=== PATIENT | female | born 1935 | race Caucasian/White ===

== ENCOUNTER 2017-11-01 14:45 | Inpatient (IN) | payer MEDICARE, BC ==
--- NOTE | 2017-11-01 15:09 | EDM.PDOC ---
ED HPI GENERAL MEDICAL PROBLEM - General Chief Complaint: Neuro Symptoms/Deficits Stated Complaint: Altered mental status Time Seen by Provider: 11/01/17 14:59 Source of Information: Reports: EMS, EMS Notes Reviewed, Retirement Records - History of Present Illness INITIAL COMMENTS - FREE TEXT/NARRATIVE: Patient is an 82-year-old female who presents to the emergency department this afternoon via EMS from [facility] for complaint of altered mental status. Per nursing staff, at 1 p.m. today patient was unresponsive and staring into space. Patient had been fine earlier in the day, able to consume meal, and converse with staff. Patient does have a history of multiple strokes recently and currently has left-sided paralysis of upper and lower extremities. Vital signs were stable per EMS and patient appears to be in no apparent distress upon presentation to the emergency department. Patient unable to communicate at this time and is only moving right upper extremity. Onset: Today Onset Date: 11/01/17 Onset Time: 13:00 Improves with: Reports: None Worsens with: Reports: None Associated Symptoms: Reports: No Other Symptoms - Related Data Allergies Allergy/AdvReac Type Severity Reaction Status Date / Time No Known Drug Allergies Allergy Other Verified 11/01/17 15:32 ED ROS GENERAL - Review of Systems Review Of Systems: ROS reveals no pertinent complaints other than HPI. Constitutional: Reports: Fatigue HEENT: Reports: No Symptoms Respiratory: Reports: No Symptoms Cardiovascular: Reports: No Symptoms Endocrine: Reports: No Symptoms GI/Abdominal: Reports: No Symptoms : Reports: No Symptoms Musculoskeletal: Reports: No Symptoms Skin: Reports: No Symptoms Neurological: Reports: Pre-Existing Deficit, Other (Unable to communicate) Psychiatric: Reports: No Symptoms Hematologic/Lymphatic: Reports: No Symptoms Immunologic: Reports: No Symptoms - Physical Exam Exam: See Below Exam Limited By: No Limitations General Appearance: WD/WN, No Apparent Distress, Other (No eye contact, able to move right upper extremity.) Eye Exam: Bilateral Eye: Abnormal Pupil (Sluggish to reaction) Nose: Normal Inspection, Normal Mucosa, No Blood Throat/Mouth: Normal Inspection, Normal Oropharynx, No Airway Compromise Head Exam: Atraumatic, Normocephalic Respiratory/Chest: No Respiratory Distress, Lungs Clear, Normal Breath Sounds Cardiovascular: Regular Rate, Rhythm GI/Abdominal: Normal Bowel Sounds, Soft, Non-Tender Neuro Exam (Abbreviated): Unresponsive, Other (NIH stroke scale 2/2/2/2/1/1/3/2/ 3/3/UA/2/3/2/UA) Extremities: Normal Inspection, No Pedal Edema Skin Exam: Warm, Dry, Intact, Normal Color, No Rash EKG INTERPRETATION EKG Date: 11/01/17 Time: 15:25 Rhythm: Other (Sinus bradycardia) [place]: Normal P-Wave: Present QRS: Normal ST-T: Other (Nonspecific) QT: Normal Comparison: NA - No Prior EKG Course - Orders/Labs/Meds Orders: Active Orders 24 hr Category Date Time Status EKG Documentation Completion [RC] ASDIRECTED Care 11/01/17 15:01 Ordered CBC WITH AUTO DIFF [HEME] Stat Lab 11/01/17 15:00 Ordered COMPREHENSIVE METABOLIC PN,CMP [CHEM] Stat Lab 11/01/17 15:00 Ordered INR,PT,PROTHROMBIN TIME [COAG] Stat Lab 11/01/17 15:00 Ordered PTT,PARTIAL THROMBOPLSTIN TIME [COAG] Stat Lab 11/01/17 15:00 Ordered UA W/MICROSCOPIC [URIN] Stat Lab 11/01/17 15:00 Ordered EKG 12 Lead [EK] Routine Ther 11/01/17 15:00 Ordered - Radiology Interpretation Free Text/Narrative:: Chest x-ray no acute cardiopulmonary process CT head without contrast shows no acute intracranial process - Re-Assessments/Exams Free Text/Narrative Re-Assessment/Exam: 11/01/17 17:12 Patient afebrile, vital signs stable, in no apparent distress. Discussed case with Dr. Sadler, and he will admit patient and follow. Departure - Departure Time of Disposition: 17:13 Disposition: Admitted As Inpatient 64 Condition: Poor Clinical Impression: Cerebrovascular accident (CVA) Qualifiers: CVA mechanism: unspecified Qualified Code(s): I63.9 - Cerebral infarction, unspecified - Discharge Information Forms: ED Department Discharge - My Orders Last 24 Hours: My Active Orders 11/01/17 15:00 CBC WITH AUTO DIFF [HEME] Stat COMPREHENSIVE METABOLIC PN,CMP [CHEM] Stat INR,PT,PROTHROMBIN TIME [COAG] Stat PTT,PARTIAL THROMBOPLSTIN TIME [COAG] Stat UA W/MICROSCOPIC [URIN] Stat EKG 12 Lead [EK] Routine 11/01/17 15:01 EKG Documentation Completion [RC] ASDIRECTED - Assessment/Plan Last 24 Hours: My Active Orders 11/01/17 15:00 CBC WITH AUTO DIFF [HEME] Stat COMPREHENSIVE METABOLIC PN,CMP [CHEM] Stat INR,PT,PROTHROMBIN TIME [COAG] Stat PTT,PARTIAL THROMBOPLSTIN TIME [COAG] Stat UA W/MICROSCOPIC [URIN] Stat EKG 12 Lead [EK] Routine 11/01/17 15:01 EKG Documentation Completion [RC] ASDIRECTED Assessment:: Altered mental status Plan: Admission to Dr. Sadler
[2017-11-01 15:34] LABS: CHLORIDE,CL 107 mmol/L (98-115); SODIUM,NA 138 mmol/L (136-145)
[2017-11-01] MEDS ORDERED: Dextrose 5%-0.45% NaCl 1,000 ML IV SCH (18:30)
[2017-11-01] MEDS ORDERED: Enoxaparin 60 MG/0.6 ML Syringe SUBCUT ONE (18:32)
[2017-11-02] MEDS ORDERED: LORazepam 2 MG/ML SDV IVPUSH ONE (05:33)
[2017-11-02 07:53] LABS: CHLORIDE,CL 107 mmol/L (98-115); SODIUM,NA 142 mmol/L (136-145)
--- NOTE | 2017-11-02 10:35 | PCM.HP ---
H&P History of Present Illness - General Date of Service: 11/02/17 Admit Problem/Dx: Admission Diagnosis/Problem Admission Diagnosis/Problem Altered mental status Source of Information: Family, Old Records, RN, Significant Other (Daughter) History Limitations: Reports: Altered Mental Status - Related Data Allergies/Adverse Reactions: Allergies Allergy/AdvReac Type Severity Reaction Status Date / Time No Known Drug Allergies Allergy Other Verified 11/01/17 15:32 Home Medications: Home Meds Atenolol 25 mg PO 1800 11/01/17 [History] Atenolol 50 mg PO DAILY 11/01/17 [History] Latanoprost 1 drop EYEBOTH BEDTIME 11/01/17 [History] Magnesium Hydroxide [Milk of Magnesia] 30 ml PO DAILY PRN 11/01/17 [History] Trolamine Salicylate/Aloe Vera [Aspercreme 10% Cream] 1 applic TOP TID 11/01/17 [History] Acetaminophen [Non-Aspirin Extra Strength] 1,000 mg PEGTUBE TID PRN #1350 ml 01/15 [Rx] Allopurinol [Zyloprim] 100 mg PEGTUBE DAILY #30 tab 11/05/17 [Rx] Aspirin 81 mg PEGTUBE DAILY #30 tab.chew 11/05/17 [Rx] Bisacodyl 10 mg RC DAILY PRN #20 supp.rect 11/05/17 [Rx] Carboxymethylcellulose/Lytes [Song-Stir Oral [place]] 1 ml MUCMEM ASDIRECTED PRN # 1 bottle 11/05/17 [Rx] Cimetidine HCl [Cimetidine] 300 mg PEGTUBE BEDTIME #150 ml 11/05/17 [Rx] Levothyroxine Sodium [Synthroid] 75 mcg PEGTUBE DAILY #30 tab 11/05/17 [Rx] Past Medical History Cardiovascular History: Reports: Afib, Arrhythmia, Hypertension Genitourinary History: Reports: Urinary Incontinence [employer] History: Reports: Neurological History: Reports: CVA Endocrine/Metabolic History: Reports: Hypoparathyroidism Social & Family History - Family History Family Medical History: Unobtainable HEENT: Reports: None Cardiac: Reports: None Respiratory: Reports: None GI: Reports: None : Reports: None OBGYN: Reports: None Musculoskeletal: Reports: None Neurological: Reports: None Psychiatric: Reports: None Endocrine/Metabolic: Reports: None Hematologic: Reports: None Immunologic: Reports: None Dermatologic: Reports: None Oncologic: Reports: None - Tobacco Use Smoking Status *Q: Unknown Ever Smoked Second Hand Smoke Exposure: No H&P Review of Systems - Review of Systems: Review Of Systems: Unable To Obtain (Patient unresponsive) Exam - Exam Exam: See Below - Vital Signs Vital Signs: Last Vital Signs Temp 99.4 F 11/02/17 05:58 Pulse 86 11/02/17 05:58 Resp 20 11/02/17 05:58 BP 151/90 H 11/02/17 05:58 Pulse Ox 91 L 11/02/17 05:58 Weight: 119 lb - Exam Quality Assessment: No: Supplemental Oxygen General: Obtunded. No: Alert, Oriented HEENT: No: Mucosa Moist & [place] Neck: Supple Lungs: Clear to Auscultation, Normal Respiratory Effort. No: Rales Cardiovascular: Regular Rate, Regular Rhythm, Normal S1, Normal S2 GI/Abdominal Exam: Soft, Distended Extremities: No Pedal Edema, Normal Capillary Refill Peripheral Pulses: 2+: Radial (L), Radial (R) Skin: Warm, Dry, Intact Neurological: Sensation Intact, Babinski, Hyporeflexia. No: Normal Gait, Normal Speech Neuro Extensive - Mental Status: Withdraws to Pain. No: Alert, Oriented x3, Normal Cognition, Opens Eyes to Commands Neuro Extensive - Motor, Sensory, Reflexes: Hemeplagia (R), Hemeplagia (L), Abnormal Motor, Motor/Sensory Deficits DTR: 0: Patella (L), Patella (R) Psychiatric: No: Alert - Patient Data Lab Results Last 24 hrs: Laboratory Results - last 24 hr 11/01/17 11/01/17 11/01/17 Range/Units 15:10 15:10 15:10 WBC 8.5 (5.0-10.0) 10^3/uL RBC 5.18 (3.80-5.50) 10^6/uL Hgb 12.4 (12.0-16.0) g/dL Hct 40.1 (37.0-47.0) % MCV 77.3 L (82.0-92.0) fL MCH 23.9 L (27.0-31.0) pg MCHC 30.9 L (32.0-36.0) g/dL RDW 16.8 H (11.5-14.5) % Plt Count 324 H (150-300) 10^3/uL MPV 8.0 (7.4-10.4) fL Neut % (Auto) 78.2 H (50.0-70.0) % Lymph % (Auto) 10.4 L (20.0-40.0) % [place] % (Auto) 7.5 (2.0-8.0) % Eos % (Auto) 0.8 L (1.0-3.0) % Baso % (Auto) 3.1 H (0.0-1.0) % Neut # (Auto) 6.6 (2.5-7.0) 10^3/uL Lymph # (Auto) 0.9 L (1.0-4.0) 10^3/uL [place] # (Auto) 0.6 (0.1-0.8) 10^3/uL Eos # (Auto) 0.1 (0.1-0.3) 10^3/uL Baso # (Auto) 0.3 H (0.0-0.1) 10^3/uL PT 10.3 (8.9-11.4) SEC INR 1.0 (0.9-1.1) APTT 24.7 (20.8-31.2) SEC Sodium 138 (136-145) mmol/L Potassium 3.7 (3.3-5.3) mmol/L Chloride 107 (98-115) mmol/L Carbon Dioxide 27.1 (21.0-32.0) mmol/L BUN 28 H (6-25) mg/dL Creatinine 0.78 (0.51-1.17) mg/dL Est Cr Clr Drug Dosing TNP Estimated GFR (MDRD) > 60 mL/min Glucose 166 H (70-110) mg/dL POC Glucose (74-106) mg/dl Calcium 9.0 (8.7-10.3) mg/dL Total Bilirubin 0.2 (0.2-1.0) mg/dL AST 20 (15-37) U/L ALT 27 (12-78) U/L Alkaline Phosphatase 96 (46-116) IU/L Troponin I (0.00-0.070) ng/mL Total Protein 6.6 (6.4-8.2) g/dL Albumin 2.69 L (3.00-4.80) g/dL Specimen Type Urine Color (YELLOW) Urine Appearance (CLEAR) Urine pH (5.0-9.0) Ur Specific [place] (1.005-1.030) Urine Protein (NEGATIVE) mg/dL Urine Glucose (UA) (NEGATIVE) mg/dL Urine Ketones (NEGATIVE) mg/dL Urine Occult Blood (NEGATIVE) Urine Nitrite (NEGATIVE) Urine Bilirubin (NEGATIVE) Urine Urobilinogen (0.2-1.0) E.U./dL Ur Leukocyte Esterase (NEGATIVE) Urine RBC /HPF Urine WBC /HPF Ur Epithelial Cells /LPF Amorphous Sediment (0/HPF) /HPF Urine Bacteria (NONE TO FEW) /HPF 11/01/17 11/01/17 11/01/17 Range/Units 15:10 16:00 23:00 WBC (5.0-10.0) 10^3/uL RBC (3.80-5.50) 10^6/uL Hgb (12.0-16.0) g/dL Hct (37.0-47.0) % MCV (82.0-92.0) fL MCH (27.0-31.0) pg MCHC (32.0-36.0) g/dL RDW (11.5-14.5) % Plt Count (150-300) 10^3/uL MPV (7.4-10.4) fL Neut % (Auto) (50.0-70.0) % Lymph % (Auto) (20.0-40.0) % [place] % (Auto) (2.0-8.0) % Eos % (Auto) (1.0-3.0) % Baso % (Auto) (0.0-1.0) % Neut # (Auto) (2.5-7.0) 10^3/uL Lymph # (Auto) (1.0-4.0) 10^3/uL [place] # (Auto) (0.1-0.8) 10^3/uL Eos # (Auto) (0.1-0.3) 10^3/uL Baso # (Auto) (0.0-0.1) 10^3/uL PT (8.9-11.4) SEC INR (0.9-1.1) APTT (20.8-31.2) SEC Sodium (136-145) mmol/L Potassium (3.3-5.3) mmol/L Chloride (98-115) mmol/L Carbon Dioxide (21.0-32.0) mmol/L BUN (6-25) mg/dL Creatinine (0.51-1.17) mg/dL Est Cr Clr Drug Dosing Estimated GFR (MDRD) mL/min Glucose (70-110) mg/dL POC Glucose 137 H (74-106) mg/dl Calcium (8.7-10.3) mg/dL Total Bilirubin (0.2-1.0) mg/dL AST (15-37) U/L ALT (12-78) U/L Alkaline Phosphatase (46-116) IU/L Troponin I < 0.04 (0.00-0.070) ng/mL Total Protein (6.4-8.2) g/dL Albumin (3.00-4.80) g/dL Specimen Type [place] Urine Color Yellow (YELLOW) Urine Appearance Slightly cloudy H (CLEAR) Urine pH 5.5 (5.0-9.0) Ur Specific [place] 1.015 (1.005-1.030) Urine Protein Negative (NEGATIVE) mg/dL Urine Glucose (UA) Negative (NEGATIVE) mg/dL Urine Ketones Trace H (NEGATIVE) mg/dL Urine Occult Blood Negative (NEGATIVE) Urine Nitrite Negative (NEGATIVE) Urine Bilirubin Negative (NEGATIVE) Urine Urobilinogen 0.2 (0.2-1.0) E.U./dL Ur Leukocyte Esterase Negative (NEGATIVE) Urine RBC 0-5 /HPF Urine WBC 0-5 /HPF Ur Epithelial Cells Moderate H /LPF Amorphous Sediment Few (0/HPF) /HPF Urine Bacteria Few (NONE TO FEW) /HPF 11/02/17 11/02/17 Range/Units 07:10 07:10 WBC 10.1 H (5.0-10.0) 10^3/uL RBC 4.98 (3.80-5.50) 10^6/uL Hgb 12.0 (12.0-16.0) g/dL Hct 38.2 (37.0-47.0) % MCV 76.7 L (82.0-92.0) fL MCH 24.0 L (27.0-31.0) pg MCHC 31.3 L (32.0-36.0) g/dL RDW 17.0 H (11.5-14.5) % Plt Count 320 H (150-300) 10^3/uL MPV 7.5 (7.4-10.4) fL Neut % (Auto) 86.3 H (50.0-70.0) % Lymph % (Auto) 6.2 L (20.0-40.0) % [place] % (Auto) 6.8 (2.0-8.0) % Eos % (Auto) 0.4 L (1.0-3.0) % Baso % (Auto) 0.3 (0.0-1.0) % Neut # (Auto) 8.8 H (2.5-7.0) 10^3/uL Lymph # (Auto) 0.6 L (1.0-4.0) 10^3/uL [place] # (Auto) 0.7 (0.1-0.8) 10^3/uL Eos # (Auto) 0.0 L (0.1-0.3) 10^3/uL Baso # (Auto) 0.0 (0.0-0.1) 10^3/uL PT (8.9-11.4) SEC INR (0.9-1.1) APTT (20.8-31.2) SEC Sodium 142 (136-145) mmol/L Potassium 3.2 L (3.3-5.3) mmol/L Chloride 107 (98-115) mmol/L Carbon Dioxide 25.0 (21.0-32.0) mmol/L BUN 17 (6-25) mg/dL Creatinine 0.65 (0.51-1.17) mg/dL Est Cr Clr Drug Dosing 54.90 Estimated GFR (MDRD) > 60 mL/min Glucose 133 H (70-110) mg/dL POC Glucose (74-106) mg/dl Calcium 8.4 L (8.7-10.3) mg/dL Total Bilirubin 0.4 (0.2-1.0) mg/dL AST 25 (15-37) U/L ALT 28 (12-78) U/L Alkaline Phosphatase 87 (46-116) IU/L Troponin I (0.00-0.070) ng/mL Total Protein 6.3 L (6.4-8.2) g/dL Albumin 2.57 L (3.00-4.80) g/dL Specimen Type Urine Color (YELLOW) Urine Appearance (CLEAR) Urine pH (5.0-9.0) Ur Specific [place] (1.005-1.030) Urine Protein (NEGATIVE) mg/dL Urine Glucose (UA) (NEGATIVE) mg/dL Urine Ketones (NEGATIVE) mg/dL Urine Occult Blood (NEGATIVE) Urine Nitrite (NEGATIVE) Urine Bilirubin (NEGATIVE) Urine Urobilinogen (0.2-1.0) E.U./dL Ur Leukocyte Esterase (NEGATIVE) Urine RBC /HPF Urine WBC /HPF Ur Epithelial Cells /LPF Amorphous Sediment (0/HPF) /HPF Urine Bacteria (NONE TO FEW) /HPF Result Diagrams: 11/05/17 07:15 11/05/17 07:15 Problem List Initiated/Reviewed/Updated: Yes Orders Last 24hrs: Active Orders 24 hr Category Date Time Status Patient Status [ADT] Routine ADT 11/01/17 17:07 Ordered EKG Documentation Completion [RC] ASDIRECTED Care 11/01/17 15:01 Active Oxygen Therapy [RC] PRN Care 11/01/17 17:07 Active VTE/DVT Education [RC] PER UNIT ROUTINE Care 11/01/17 17:07 Active Vital Signs [RC] 0300,0700,1100,1500,1900,2300 Care 11/01/17 17:07 Active Head wo Cont [CT] Stat Exams 11/01/17 15:26 Taken UA W/MICROSCOPIC [URIN] Stat Lab 11/01/17 16:00 Ordered Dextrose 5%-0.45% NaCl [Dextrose 5%-1/2 NS] 1,000 ml Med 11/01/17 18:30 Active IV ASDIRECTED Resuscitation Status Routine Resus Stat 11/01/17 17:07 Ordered EKG 12 Lead [EK] Routine Ther 11/01/17 15:00 Ordered Medication Orders Dextrose/Sodium Chloride (Dextrose 5%-1/2 Ns) 1,000 mls @ 50 mls/hr IV ASDIRECTED CAITIE Last Admin: 11/01/17 19:30 Dose: 50 mls/hr Assessment/Plan Comment:: HISTORY OF PRESENT ILLNESS 82-year-old patient who is a resident of a long-term care center was admitted due to altered mental status and unresponsiveness. Nursing staff noticed yesterday the patient became unresponsive and staring into space however they also noticed earlier that day she was eating and conversing with staff in her normal state of health however the patient has had recent CVA affecting her left side and was evaluated [facility]. Daughter states she was removed from aspirin due to GI concerns in the past. [facility] provider notified yesterday by nursing staff at [place] stating resident was up and out for breakfast and was stable. She was taken to her room for a nap then began to be look more staring, without focusing on people. Her vital signs have remained stable but her mental status has declined from that morning. Pt was seen in ER 10/20/17 for CVA, seen again 10/21/17 with AFib with RVR. Patient was given lopressore IV and went into nl sinus rhythm. Discharged back to long-term care from the ED on atenolol rate control. Head CT [facility], October 20 no acute intracranial findings, no hemorrhage or mass effects, however slightly progressed central and cortical cerebral atrophy with degenerative changes. Neurology was consulted on October 20--patient was not a candidate for aspirin or tPA. NIH stroke scale elevated at 27. Pertinent workup EKG, sinus rhythm, Troponin normal head CT, no acute intracranial process no mass effect Primary problems CVA, hypokalemia Proximal atrial fibrillation, in NSR Cervical neck pain Chronic problems, stable HTN HLD Hypothyroidism, acquired Gout History of GI bleed Alzheimer's Lond discussion with family. We'll keep her acute care, increase IV rate to 65 mL per hour, correct potassium, declared managment at this time. Monitor for any hemodynamic changes, Report SBP greater than 165. Medication reconciliation , hold all orals, change Tylenol to scheduled rectal, Monitor blood glucose levels reporting paratmeters, pneumatic compression devices, if she becomes alert likely will need swallow evaluation and extensive rehabilitation, Family agrees with plan. Patient does have updated POLST and is a DO NOT RESUSCITATE
[2017-11-02] MEDS ORDERED: Potassium Chloride 100 ML IV ONE ×3 (11:15→21:00)
[2017-11-02] MEDS: Acetaminophen 325 MG Supp RECTAL SCH ×4 (14:08→23:23)
[2017-11-02] MEDS: Trolamine Salicylate/Aloe Vera 10% Crm 85 GM Tube TOP SCH ×2 (14:11→21:01)
[2017-11-02] MEDS: Dextrose 5%-0.45% NaCl 1,000 ML IV SCH (15:47)
--- NOTE | 2017-11-02 15:49 | PN ---
11/01/2017 PATIENT NAME: SILVIO MEJIA ADMITTING/HOLDING NOTE PATIENT PROFILE: The patient is an 82-year-old patient from [facility] in [place], [place]. The patient presented to the emergency room because of symptoms of stroke. It should be noted that the patient was at [facility] on 10/21/2017 with symptoms of tachycardia, atrial fibrillation, and left-sided paralysis of the left upper and lower extremities. The patient still has same symptoms of weakness of the left upper and left lower extremities. In addition, she has weakness of the right leg. Also, she was sitting and talking this morning, but she would not talk anymore. She is a DNR candidate. After being at the emergency room, a CAT scan was performed and the result of the CAT scan shows that there was "no acute intracranial process". Approximately two weeks ago, she had a CAT scan at [facility] again, which did not show any acute process. This patient's past history is positive for hypertension, osteoarthritis, paroxysmal supraventricular tachycardia, hyperlipidemia, diverticulosis, hypothyroidism, episodic mood disorder, paranoid status. The patient was seen in the emergency room by ESTEPHANIA Aleman. Previously in this morning, she was able to consume a meal and converse with the staff. At the time of her admission to the emergency room, she was not communicative. Examination in the emergency room revealed her to be noncommunicative with no movement of the left upper or lower extremity. Lungs were clear. Abdomen was soft. Cardiovascular showed regular rhythm. EKG showed sinus bradycardia with nonspecific ST-T wave abnormalities. The patient's medications included methylprednisolone Dosepak, Seroquel 25 mg two times a day, Synthroid 75 mcg once a day, Tylenol 650 two times a day as necessary, Tenormin 50 mg once a day, multivitamins. When I saw this patient at about 6:15, she was in her room. She was comfortable and not in any distress. However, she was not really communicative. She did open her eyes and was staring to the left side. She had no movement of the left upper or lower extremity or both lower extremities. Her vital signs were stable. Heart and lungs stable. Abdomen is soft. Right side is normal. FINAL DIAGNOSES: On this patient: 1. Recent left-sided cerebrovascular accident. 2. Possible fresh cerebrovascular accident with symptoms of noncommunication today. The patient's CAT scan, however, is negative and she is not a candidate for tPA or aspirin prophylaxis. Her NIH Stroke Scale is also quite high at 27. It is also contraindicated because of her age at 81. She will be admitted to the hospital and managed as a [id number] candidate. We will support her. /[id number]/MODL MTDD
[2017-11-02] MEDS ORDERED: cefTRIAXone 1 GM Vial IVPUSH ONE (16:25)
[2017-11-02] MEDS: Latanoprost 0.005% Ophth Soln 2.5 ML Bottle EYEBOTH SCH (21:04)
[2017-11-03] MEDS: Acetaminophen 325 MG Supp RECTAL SCH ×6 (03:23→23:09)
[2017-11-03 08:16] LABS: CHLORIDE,CL 104 mmol/L (98-115); SODIUM,NA 146 mmol/L (136-145)
[2017-11-03] MEDS: Dextrose 5%-0.45% NaCl 1,000 ML IV SCH (08:16)
--- NOTE | 2017-11-03 09:45 | PCM.PN ---
- General Info Date of Service: 11/03/17 Subjective Update: Review of systems unable to obtain Functional Status: Reports: Pain Controlled, Urinating (Incontinent), New Symptoms (Eyes now opening more spontaneously with some purposeful movement right hand). Denies: Tolerating Diet, Ambulating - Review of Systems General: Reports: No Symptoms - Patient Data Vitals - Most Recent: Last Vital Signs Temp 98.8 F 11/03/17 06:56 Pulse 78 11/03/17 06:56 Resp 18 11/03/17 06:56 BP 156/96 H 11/03/17 06:56 Pulse Ox 94 L 11/03/17 06:56 Weight - Most Recent: 119 lb I&O - Last 24 Hours: Intake & Output 11/02/17 11/03/17 11/03/17 22:59 06:59 14:59 Intake Total 709 537 Balance 709 537 Lab Results Last 24 Hours: Laboratory Results - last 24 hr 11/02/17 11/02/17 11/03/17 Range/Units 14:36 17:54 07:50 WBC (5.0-10.0) 10^3/uL RBC (3.80-5.50) 10^6/uL Hgb (12.0-16.0) g/dL Hct (37.0-47.0) % MCV (82.0-92.0) fL MCH (27.0-31.0) pg MCHC (32.0-36.0) g/dL RDW (11.5-14.5) % Plt Count (150-300) 10^3/uL MPV (7.4-10.4) fL Neut % (Auto) (50.0-70.0) % Lymph % (Auto) (20.0-40.0) % [place] % (Auto) (2.0-8.0) % Eos % (Auto) (1.0-3.0) % Baso % (Auto) (0.0-1.0) % Neut # (Auto) (2.5-7.0) 10^3/uL Lymph # (Auto) (1.0-4.0) 10^3/uL [place] # (Auto) (0.1-0.8) 10^3/uL Eos # (Auto) (0.1-0.3) 10^3/uL Baso # (Auto) (0.0-0.1) 10^3/uL Sodium 146 H (136-145) mmol/L Potassium 4.0 (3.3-5.3) mmol/L Chloride 104 (98-115) mmol/L Carbon Dioxide 25.3 (21.0-32.0) mmol/L BUN 13 (6-25) mg/dL Creatinine 0.65 (0.51-1.17) mg/dL Est Cr Clr Drug Dosing 54.90 mL/min Estimated GFR (MDRD) > 60 mL/min Glucose 129 H (70-110) mg/dL POC Glucose 131 H 118 H (74-106) mg/dl Calcium 8.5 L (8.7-10.3) mg/dL 11/03/17 11/03/17 Range/Units 07:50 08:27 WBC 7.7 (5.0-10.0) 10^3/uL RBC 4.74 (3.80-5.50) 10^6/uL Hgb 11.4 L (12.0-16.0) g/dL Hct 36.8 L (37.0-47.0) % MCV 77.6 L (82.0-92.0) fL MCH 24.1 L (27.0-31.0) pg MCHC 31.1 L (32.0-36.0) g/dL RDW 16.9 H (11.5-14.5) % Plt Count 277 (150-300) 10^3/uL MPV 7.5 (7.4-10.4) fL Neut % (Auto) 81.0 H (50.0-70.0) % Lymph % (Auto) 8.6 L (20.0-40.0) % [place] % (Auto) 8.9 H (2.0-8.0) % Eos % (Auto) 0.7 L (1.0-3.0) % Baso % (Auto) 0.8 (0.0-1.0) % Neut # (Auto) 6.1 (2.5-7.0) 10^3/uL Lymph # (Auto) 0.7 L (1.0-4.0) 10^3/uL [place] # (Auto) 0.7 (0.1-0.8) 10^3/uL Eos # (Auto) 0.1 (0.1-0.3) 10^3/uL Baso # (Auto) 0.1 (0.0-0.1) 10^3/uL Sodium (136-145) mmol/L Potassium (3.3-5.3) mmol/L Chloride (98-115) mmol/L Carbon Dioxide (21.0-32.0) mmol/L BUN (6-25) mg/dL Creatinine (0.51-1.17) mg/dL Est Cr Clr Drug Dosing mL/min Estimated GFR (MDRD) mL/min Glucose (70-110) mg/dL POC Glucose 143 H (74-106) mg/dl Calcium (8.7-10.3) mg/dL Med Orders - Current: Current Medications Acetaminophen (Tylenol) 325 mg RECTAL Q4H [facility] Last Admin: 11/03/17 06:29 Dose: 325 mg Dextrose/Sodium Chloride (Dextrose 5%-1/2 Ns) 1,000 mls @ 65 mls/hr IV ASDIRECTED [facility] Last Admin: 11/03/17 08:16 Dose: 65 mls/hr Latanoprost (Xalatan 0.005% Ophth Soln) 0 ml EYEBOTH BEDTIME [facility] Last Admin: 11/02/17 21:04 Dose: 1 drop Trolamine Salicylate (Aspercreme 10%) 0 gm TOP TID [facility] Last Admin: 11/02/17 21:01 Dose: 1 applic Discontinued Medications Ceftriaxone Sodium (Rocephin) 1 gm IVPUSH ONETIME ONE Stop: 11/02/17 16:26 Last Admin: 11/02/17 17:30 Dose: 1 gm Enoxaparin Sodium (Lovenox) 60 mg SUBCUT ONETIME ONE Stop: 11/01/17 18:33 Last Admin: 11/01/17 19:30 Dose: 60 mg Dextrose/Sodium Chloride (Dextrose 5%-1/2 Ns) 1,000 mls @ 65 mls/hr IV ASDIRECTED [facility] Last Admin: 11/01/17 19:30 Dose: 50 mls/hr Potassium Chloride (Kcl 20 Meq In Water 100 Ml) 100 mls @ 50 mls/hr IV ONETIME ONE Stop: 11/02/17 13:14 Last Admin: 11/02/17 14:14 Dose: 50 mls/hr Potassium Chloride (Kcl 20 Meq In Water 100 Ml) 100 mls @ 50 mls/hr IV ONETIME ONE Stop: 11/02/17 17:59 Last Admin: 11/02/17 16:43 Dose: 50 mls/hr Potassium Chloride (Kcl 20 Meq In Water 100 Ml) 100 mls @ 50 mls/hr IV ONETIME ONE Stop: 11/02/17 22:59 Last Admin: 11/02/17 20:59 Dose: 50 mls/hr Lorazepam (Ativan) 0.5 mg IVPUSH ONETIME ONE Stop: 11/02/17 05:34 Last Admin: 11/02/17 06:32 Dose: 0.5 mg - Exam Quality Assessment: No: Supplemental Oxygen, Skin Breakdown General: Cooperative. No: Alert (Eyes open spontaneously), Oriented HEENT: Pupils Equal, Pupils Reactive. No: EOMI Neck: Supple Lungs: Clear to Auscultation, Normal Respiratory Effort Cardiovascular: Regular Rate, Regular Rhythm GI/Abdominal Exam: Soft (Female) Exam: Deferred Extremities: No Pedal Edema Peripheral Pulses: 2+: Radial (L), Radial (R) Skin: Warm, Dry, Intact Neurological: Sensation Intact, Other (Poor gag reflex, left-sided hemophoresis , some right upper extremity slight movement against gravity, will squeeze my hand when asked slightly, left foot drop no patellar reflexes). No: Normal Speech, Normal Tone, Cranial Nerves Intact Psy/Mental Status: Alert (Her eyes are open smiling). No: Agitated - Problem List Review Problem List Initiated/Reviewed/Updated: Yes - My Orders Last 24 Hours: My Active Orders 11/02/17 11:00 Acetaminophen [Tylenol] 325 mg RECTAL Q4H 11/02/17 11:06 Accu Check [Blood Glucose Check, Bedside] [RC] BIDMEALS 11/02/17 14:00 Trolamine Salicylate/Aloe Vera [Aspercreme 10%] 0 gm TOP TID 11/02/17 14:33 Accu Check [Blood Glucose Check, Bedside] [RC] TIDMEALS 11/02/17 21:00 Latanoprost [Xalatan 0.005% Ophth Soln] 0 ml EYEBOTH BEDTIME - Plan Plan:: HISTORY OF PRESENT ILLNESS 82-year-old patient who is a resident of a long-term care center was admitted due to altered mental status and unresponsiveness. Nursing staff noticed yesterday the patient became unresponsive and staring into space however they also noticed earlier that day she was eating and conversing with staff in her normal state of health however the patient has had recent CVA affecting her left side and was evaluated [facility]. Daughter states she was removed from aspirin due to GI concerns in the past. [facility] provider notified yesterday by nursing staff at [place] stating resident was up and out for breakfast and was stable. She was taken to her room for a nap then began to be look more staring, without focusing on people. Her vital signs have remained stable but her mental status has declined from that morning. Pt was seen in ER 10/20/17 for CVA, seen again 10/21/17 with AFib with RVR. Patient was given lopressore IV and went into nl sinus rhythm. Discharged back to long-term care from the ED on atenolol rate control. Head CT [facility], October 20 no acute intracranial findings, no hemorrhage or mass effects, however slightly progressed central and cortical cerebral atrophy with degenerative changes. Neurology was consulted on October 20--patient was not a candidate for aspirin or tPA. NIH stroke scale elevated at 27. Pertinent workup EKG, sinus rhythm, Troponin normal head CT, no acute intracranial process no mass effect Update this morning, patient slightly more alert however appears sleepy, eyes open to verbal command, improved purposeful movement right upper extremity, significant left-sided hemiparesis deficit, very poor gag reflex, poor patellar tone, left foot drop, normal sensation. Patient received PEG tube 24 hours ago tolerating well, Primary problems CVA, Proximal atrial fibrillation, in NSR Cervical neck pain PEG Tube placed Chronic problems, stable HTN HLD Hypothyroidism, acquired Gout History of GI bleed Alzheimer's PEG tube placed 24 hours ago seems to be tolerating well, currently on Jevity however upon discharge we'll switch to Isosource 1.5 at 42 ml/hr continuous with 65 mL water flush every 4 hours. Add protonic, Decrease IV fluids today, Upon discharge will need extensive rehabilitation due to her significant left- sided hemiparesis and now right-sided deficit, has made some progress however slow. Anticipate discharge likely tomorrow. Patient does have updated POLST and is a DO NOT RESUSCITATE
[2017-11-03] MEDS: Trolamine Salicylate/Aloe Vera 10% Crm 85 GM Tube TOP SCH ×3 (09:51→21:16)
[2017-11-03] MEDS ORDERED: Sodium Chloride 0.9% 5 ML Syringe FLUSH PRN (10:43)
[2017-11-03] MEDS ORDERED: Lactated Ringers 1,000 ML IV SCH (10:45)
[2017-11-03] MEDS ORDERED: fentaNYL 100 MCG/2 ML SDV ONE (10:46)
[2017-11-03] MEDS ORDERED: Midazolam 1 MG/ML 2 ML SDV ONE (10:46)
[2017-11-03] MEDS ORDERED: Propofol 200 MG/20 ML SDV ONE (10:47)
--- NOTE | 2017-11-03 12:36 | PCM.OPNOTE ---
- General Post-Op/Procedure Note Date of Surgery/Procedure: 11/03/17 Operative Procedure(s): Percutaneous gastrostomy tube insertion and gastroscopy. Findings: Normal upper GI endoscopy except for a slight tortuosity of the esophagus at the proximal and just past the pharyngeal sphincter. Anesthesia Technique: MAC Primary Surgeon: Vanessa Powell Condition: Good Free Text/Narrative:: Preoperative diagnosis: Dysphagia secondary to stroke. Postoperative diagnosis: As above Procedure proposed: Percutaneous gastrostomy tube insertion and gastroscopy. Informed consent was obtained from the patient as well as her extended family. A thorough discussion was held with this patient's family. They wish for me to proceed. All possible complications and implications were thoroughly discussed. The patient was taken to the operating room where she was kept in the supine position. Monitored anesthesia care was used. Continuous EKG , oximetry monitoring and intermittent blood pressure and respiratory monitoring were performed throughout the procedure. An Olympus video gastroscope was introduced in the mouth and gently advanced into the pharyngeal area. No stricture was identified. Just beyond the pharynx, however there was a slight tortuosity of the esophagus. I was then able to pass the endoscope through the esophagus, gastroesophageal junction and into the stomach. All parts of stomach appeared to be normal. The antrum, pylorus, first and second parts of the duodenum were also normal. Retroflexion technique was employed and no additional findings were discovered. The scope was then pulled back into the antral region and the stomach was inflated. A thorough skin prep was performed at the epigastric region. The light source could be visualized easily through the subcutaneous tissues at the epigastrium. Xylocaine 1% was used to anesthetize the skin and subcutaneous tissue and a needle and trocar were introduced at the epigastrium. The needle and trocar were seen through the gastroscope. We then passed a guidewire grasped it with a snare and pulled it per oral. We then passed the gastrostomy tube over the guidewire and saw it emanate at the epigastrium. This was gently facilitated. We then replaced the gastroscope and noted a good position for the bumper. The scope was withdrawn. The gastrostomy tube was cut short at 11 centimeters showing at the skin.. Sterile dressings were applied. The patient tolerated the procedure well. There were no complications. She was returned to the recovery room in an excellent condition. There was no blood loss. Intake & Output 11/02/17 11/03/17 11/03/17 22:59 06:59 14:59 Intake Total 709 537 Balance 700 53
[2017-11-03] MEDS: cefTRIAXone 1 GM Vial IVPUSH SCH (13:53)
[2017-11-03] MEDS ORDERED: Potassium Chloride 20 MEQ in Premix Bag 1 BAG IV ONE (14:00)
[2017-11-03] MEDS: Latanoprost 0.005% Ophth Soln 2.5 ML Bottle EYEBOTH SCH (21:16)
[2017-11-03] MEDS ORDERED: Saliva Substitute Oral Spray 120 ML Bottle MUCMEM PRN (23:18)
[2017-11-04] MEDS: Dextrose 5%-0.45% NaCl 1,000 ML IV SCH (03:26)
[2017-11-04] MEDS: Acetaminophen 325 MG Supp RECTAL SCH ×5 (03:27→18:30)
[2017-11-04] MEDS: Trolamine Salicylate/Aloe Vera 10% Crm 85 GM Tube TOP SCH ×3 (08:31→20:27)
--- NOTE | 2017-11-04 10:06 | PCM.PN ---
- General Info Date of Service: 11/04/17 Subjective Update: Review of systems unable to obtain Functional Status: Reports: Pain Controlled, Tolerating Diet (PEG tube placed before hours ago tolerating it well) - Patient Data Vitals - Most Recent: Last Vital Signs Temp 98.2 F 11/04/17 07:00 Pulse 69 11/04/17 07:00 Resp 16 11/04/17 07:00 BP 127/89 11/04/17 07:00 Pulse Ox 97 11/04/17 07:00 Weight - Most Recent: 119 lb I&O - Last 24 Hours: Intake & Output 11/03/17 11/04/17 11/04/17 22:59 06:59 14:59 Intake Total 660 849 Balance 660 849 Lab Results Last 24 Hours: Laboratory Results - last 24 hr 11/03/17 11/03/17 11/04/17 Range/Units 12:48 17:59 07:50 POC Glucose 117 H 123 H 133 H (74-106) mg/dl Med Orders - Current: Current Medications Acetaminophen (Tylenol) 325 mg RECTAL Q4H [facility] Last Admin: 11/04/17 08:30 Dose: 325 mg Ceftriaxone Sodium (Rocephin) 1 gm IVPUSH Q24H [facility] Last Admin: 11/03/17 13:53 Dose: 1 gm Dextrose/Sodium Chloride (Dextrose 5%-1/2 Ns) 1,000 mls @ 65 mls/hr IV ASDIRECTED [facility] Last Admin: 11/04/17 03:26 Dose: 65 mls/hr Lactated Ringer's (Ringers, Lactated) 1,000 mls @ 50 mls/hr IV ASDIRECTED [facility] Last Admin: 11/03/17 11:30 Dose: 50 mls/hr Latanoprost (Xalatan 0.005% Ophth Soln) 0 ml EYEBOTH BEDTIME [facility] Last Admin: 11/03/17 21:16 Dose: 1 drop Saliva Substitute (Song-Stir Oral [employer]) 0 ml MUCMEM ASDIRECTED PRN PRN Reason: Dryness Last Admin: 11/04/17 03:27 Dose: 2 spray Sodium Chloride (Syrex Flush) 5 ml FLUSH Q8HR PRN PRN Reason: Keep Vein Open Trolamine Salicylate (Aspercreme 10%) 0 gm TOP TID [facility] Last Admin: 11/04/17 08:31 Dose: 1 applic Discontinued Medications Ceftriaxone Sodium (Rocephin) 1 gm IVPUSH ONETIME ONE Stop: 11/02/17 16:26 Last Admin: 11/02/17 17:30 Dose: 1 gm Enoxaparin Sodium (Lovenox) 60 mg SUBCUT ONETIME ONE Stop: 11/01/17 18:33 Last Admin: 11/01/17 19:30 Dose: 60 mg Fentanyl (Sublimaze) Confirm Administered Dose 100 mcg .ROUTE .STK-MED ONE Stop: 11/03/17 10:47 Last Admin: 11/03/17 19:48 Dose: Not Given Dextrose/Sodium Chloride (Dextrose 5%-1/2 Ns) 1,000 mls @ 65 mls/hr IV ASDIRECTED [facility] Last Admin: 11/01/17 19:30 Dose: 50 mls/hr Potassium Chloride (Kcl 20 Meq In Water 100 Ml) 100 mls @ 50 mls/hr IV ONETIME ONE Stop: 11/02/17 13:14 Last Admin: 11/02/17 14:14 Dose: 50 mls/hr Potassium Chloride (Kcl 20 Meq In Water 100 Ml) 100 mls @ 50 mls/hr IV ONETIME ONE Stop: 11/02/17 17:59 Last Admin: 11/02/17 16:43 Dose: 50 mls/hr Potassium Chloride (Kcl 20 Meq In Water 100 Ml) 100 mls @ 50 mls/hr IV ONETIME ONE Stop: 11/02/17 22:59 Last Admin: 11/02/17 20:59 Dose: 50 mls/hr Potassium Chloride 20 meq/ (Premix) 100 mls @ 50 mls/hr IV ONETIME ONE Stop: 11/03/17 15:59 Last Admin: 11/03/17 14:09 Dose: 50 mls/hr Lorazepam (Ativan) 0.5 mg IVPUSH ONETIME ONE Stop: 11/02/17 05:34 Last Admin: 11/02/17 06:32 Dose: 0.5 mg Midazolam HCl (Versed 1 Mg/Ml) Confirm Administered Dose 2 mg .ROUTE .STK-MED ONE Stop: 11/03/17 10:47 Last Admin: 11/03/17 19:48 Dose: Not Given Propofol (Diprivan 20 Ml) Confirm Administered Dose 200 mg .ROUTE .STK-MED ONE Stop: 11/03/17 10:48 Last Admin: 11/03/17 19:50 Dose: Not Given - Exam Quality Assessment: No: Supplemental Oxygen, Skin Breakdown General: Alert, Other (Patient will open eyes spontaneously, improved purposeful movement right upper extremity) Neck: Supple Lungs: Clear to Auscultation, Normal Respiratory Effort Cardiovascular: Regular Rate, Regular Rhythm GI/Abdominal Exam: Soft, No Distention, Other (PEG tube placed). No: Rigid, Rebound, Tender (Female) Exam: Deferred Extremities: No Pedal Edema Skin: Warm, Dry, Intact Neurological: Other (Significant left-sided paralysis, left-sided dropfoot, purposeful movement right upper extremity, open eyes spontaneously to voice, will withdraw left lower extremity easily to pain, poor gag reflex, ) Psy/Mental Status: Alert - Problem List Review Problem List Initiated/Reviewed/Updated: Yes - My Orders Last 24 Hours: My Active Orders 11/03/17 10:12 Nutrition Reassessment/Plan, Adult [Consult to [facility]] [CONS] Routine 11/03/17 10:22 PEG Tube Management [Percutaneous Endoscopic Gastostomy Tube] [OM.PC] Routine Percutaneous Endoscopic Gastostomy Tube [OM.PC] Routine 11/03/17 11:09 Tube Feeding [Enteral Feedings] [RC] Click to Edit 11/03/17 14:00 cefTRIAXone [Rocephin] 1 gm IVPUSH Q24H - Plan Plan:: HISTORY OF PRESENT ILLNESS 82-year-old patient who is a resident of a long-term care center was admitted due to altered mental status and unresponsiveness. Nursing staff noticed yesterday the patient became unresponsive and staring into space however they also noticed earlier that day she was eating and conversing with staff in her normal state of health however the patient has had recent CVA affecting her left side and was evaluated [facility]. Daughter states she was removed from aspirin due to GI concerns in the past. [facility] provider notified yesterday by nursing staff at [place] stating resident was up and out for breakfast and was stable. She was taken to her room for a nap then began to be look more staring, without focusing on people. Her vital signs have remained stable but her mental status has declined from that morning. Pt was seen in ER 10/20/17 for CVA, seen again 10/21/17 with AFib with RVR. Patient was given lopressore IV and went into nl sinus rhythm. Discharged back to long-term care from the ED on atenolol rate control. Head CT [facility], October 20 no acute intracranial findings, no hemorrhage or mass effects, however slightly progressed central and cortical cerebral atrophy with degenerative changes. Neurology was consulted on October 20--patient was not a candidate for aspirin or tPA. NIH stroke scale elevated at 27. Pertinent workup EKG, sinus rhythm, Troponin normal head CT, no acute intracranial process no mass effect Update this morning, patient slightly more alert, eyes open to command, some purposeful movement right upper extremity, significant left-sided hemiparesis deficit, very poor gag reflex, poor patellar tone, left foot drop, normal sensation Primary problems CVA, Proximal atrial fibrillation, in NSR Cervical neck pain Chronic problems, stable HTN HLD Hypothyroidism, acquired Gout History of GI bleed Alzheimer's discussion with family. Patient will need nutrition with PEG tube family is in full agreement with this, will need extensive rehabilitation due to her significant left-sided hemiparesis and now right-sided deficit, has made some progress however slow. Will set her up for PEG tube placement with surgeon Dr. Doroteo Powell, NPO. All risks to family were explained and they are in agreement with accepting the risk of PEG tube placement. Patient does have updated POLST and is a DO NOT RESUSCITATE
[2017-11-04] MEDS ORDERED: Dextrose 5%-0.45% NaCl 1,000 ML IV SCH (10:15)
[2017-11-04] MEDS: Pantoprazole 40 MG Vial IVPUSH SCH (10:39)
[2017-11-04] MEDS: cefTRIAXone 1 GM Vial IVPUSH SCH (13:51)
[2017-11-04] MEDS: Latanoprost 0.005% Ophth Soln 2.5 ML Bottle EYEBOTH SCH (20:27)
[2017-11-05] MEDS: Acetaminophen Soln 160 MG/5 ML UD Cup PEGTUBE SCH ×3 (00:05→08:24)
[2017-11-05 07:51] LABS: CHLORIDE,CL 105 mmol/L (98-115); SODIUM,NA 140 mmol/L (136-145)
[2017-11-05] MEDS: Pantoprazole 40 MG Vial IVPUSH SCH (08:25)
[2017-11-05] MEDS: Trolamine Salicylate/Aloe Vera 10% Crm 85 GM Tube TOP SCH (09:07)
--- NOTE | 2017-11-05 14:27 | DISCH ---
Patient was admitted inpatient 11/01/2017. Discharged from inpatient 11/05/2017. FINAL DIAGNOSES: Likely recurrent cerebrovascular accident, dysphagia with subsequent PEG tube placement, cervical neck pain with muscle spasm, chronic problems include hypertension, hyperlipidemia, hypothyroidism, history of gout, Alzheimer disease, atrial fibrillation. HISTORY: This 82-year-old resident of a long-term care center was admitted initially due to altered mental status and unresponsiveness. On the day of note, the patient became unresponsive and she was staring into space. However, they also noticed earlier that day that she was eating and conversing with staff. She was in her normal state of health. The patient had a recent CVA affecting her entire left side. She was evaluated by the [facility], treated, and released same day from the ED. The provider was notified by nursing staff that she was up out for breakfast and seems stable. She was taken to her room for a nap and she began to have more staring episodes without focusing on people. Her vital signs remained stable, but her mental status had declined from that morning. Again, she was evaluated in the ED on 10/20/2017, for CVA, seen again on the next day, the , for atrial fibrillation with RVR. The patient had been given Lopressor IV. She went into sinus rhythm. She was discharged back to [facility] from [place] on atenolol heart rate. CT in [facility] on 10/20 showed no acute intracranial process, no hemorrhage or mass effect. However, she did have some slight progress central and cortical cerebral atrophy with degenerative changes. Neurology was consulted on 10/20. At that time, she was not a candidate for any aspirin, tPA. Pertinent ED workup here at [facility], EKG showed sinus rhythm. Troponin was normal. Head CT showed no acute intracranial process or mass effect. HOSPITAL COURSE: The patient did have some progress in her mental status. She became slightly more alert. She was unresponsive early on. During admission, she had significant left-sided paralysis; however, her right side, she started moving, having more purposeful against gravity of her right upper extremity. She was opening her eyes to verbal commands, looking around and smiling. She had normal sensation to her right side. No facial paralysis. Poor gag reflex. Pupils, initially on left side, were dilated on admission; however, within 24 hours they were both equal and reactive to light. Due to her poor gag reflex, no video swallow was performed; however, a PEG tube was placed for enteral feedings. She never became hemodynamically unstable. We did begin Jevity feeding. She will be discharged with Isosource. She tolerated the procedure well without complications. No vomiting. LABORATORY DATA: White count initially was 10.1. She was started on prophylactic Rocephin. White count on discharge 7.7, platelets 277. Sodium 146, potassium was 4.0. She did require potassium supplementation IV. BUN 13, creatinine 0.65. Estimated drug dosing is 55. Glucose was 129. AST, ALT normal. PHYSICAL EXAMINATION: VITAL SIGNS: On discharge, temperature 98.0, heart rate 86, blood pressure 142/90, O2 sats 94%. LUNGS: Clear to auscultation. MEDICATION CHANGES AND ADJUSTMENTS: All medications were changed to PEG tube. H2 cimetidine 300 mg per PEG tube at bedtime, aspirin 81 mg crushing per PEG, Tylenol Elixir Extra Strength 1000 mg per PEG tube t.i.d. scheduled. DISPOSITION: The patient will be discharged from hospital back to long-term [facility]. She will need extensive physical therapy, occupational therapy, and speech evaluation. May consider a swallow evaluation at some point in the future. Right now, she has a PEG tube. Greater than 45 minutes was spent on this discharge planning, process, care, coordination. /[id number]/MODL
== END 2017-11-05 11:00 | DRG 65 ==
LOC: KA.ED 14:45 → KA.MS 17:07
PROVIDERS: ADMIT Physician Assistant Surgical; ATTEND Family Medicine
PROC: 0DH63UZ Insertion of Feeding Device into Stomach, Percutaneous Approach (ICD-10-PCS; principal; 2017-11-03)
DX: I63.9 Cerebral infarction, unspecified (principal); I69.354 Hemiplegia and hemiparesis following cerebral infarction affecting left non-dominant side; I69.351 Hemiplegia and hemiparesis following cerebral infarction affecting right dominant side; R13.10 Dysphagia, unspecified; M54.2 Cervicalgia; M62.838 Other muscle spasm; I10 Essential (primary) hypertension; E78.5 Hyperlipidemia, unspecified; E03.9 Hypothyroidism, unspecified; Z66 Do not resuscitate; G30.9 Alzheimer's disease, unspecified; F02.80 Dementia in other diseases classified elsewhere, unspecified severity, without behavioral disturbance, psychotic disturbance, mood disturbance, and anxiety; I48.91 Unspecified atrial fibrillation; E87.6 Hypokalemia; M10.9 Gout, unspecified; E20.9 Hypoparathyroidism, unspecified; Z79.899 Other long term (current) drug therapy; Z79.82 Long term (current) use of aspirin; Z87.19 Personal history of other diseases of the digestive system
CPT/HCPCS: 00400; 01740; 36415; 70450; 71045; 80048; 80053; 81001; 82962; 84484; 85025; 85610; 85730; 93005; 99285; A9270-GY; C9113; J0696; J1650; J2060; J2250; J3480; J7042; J7120